=== PATIENT | female | born 1940 | race Caucasian/White ===

== ENCOUNTER 2018-05-24 18:59 | Inpatient (IN) | payer BC ==
[2018-05-24 19:17] LABS: ADD MAN DIFF? NO
[2018-05-24] MEDS: SOD CHLORIDE 0.9% 1,000 ML IV (19:18)
[2018-05-24] MEDS: morphine 4 MG/ML VIAL IV (19:19)
[2018-05-24] MEDS: ONDANSETRON 4 MG INJ IV (19:19)
[2018-05-24 19:20] LABS: BASOPHIL # 0.1 10^3/ul (0.0-0.1); BASOPHILS % 0.6 % (0.0-2.0); EOSINOPHILS # 0.2 10^3/ul (0.0-0.5); EOSINOPHILS % 1.7 % (0.0-7.0); HEMATOCRIT 32.3 % (37.0-47.0); HEMOGLOBIN 11.3 g/dl (12.0-16.0); IMMATURE GRANS #M 0.03 10^3/ul; IMMATURE GRANS % (M) 0.3 %; LYMPHOCYTES # 1.7 10^3/ul (0.8-2.9); LYMPHOCYTES % 19.8 % (15.0-51.0); MEAN CORPUSCULAR HEMOGLOBIN 31.7 pg (29.0-33.0); MEAN CORPUSCULAR VOLUME 90.5 fl (82.0-101.0); MEAN PLATELET VOLUME 10.6 fl (7.4-10.4); MONOCYTE # 0.5 10^3/ul (0.3-0.9); MONOCYTES % 5.3 % (0.0-11.0); NEUTROPHIL # 6.3 10^3/ul (1.6-7.5); NEUTROPHILS % 72.3 % (39.0-77.0); PLATELET COUNT 205 10^3/UL (140-415); RED BLOOD COUNT 3.57 10^6/ul (4.20-5.40); RED CELL DISTRIBUTION WIDTH 15.4 % (11.5-14.5)
[2018-05-24 19:20] LABS: WHITE BLOOD COUNT 8.7 10^3/ul (4.8-10.8)
[2018-05-24 19:37] LABS: ALANINE AMINOTRANSFERASE 27 IU/L (13-69); ALBUMIN 4.9 g/dl (3.3-4.9); ALBUMIN/GLOBULIN RATIO 1.48; ALKALINE PHOSPHATASE 106 IU/L (42-121); ANION GAP 15 (8-16); ASPARTATE AMINO TRANSFERASE 31 IU/L (15-46); BILIRUBIN,INDIRECT 0.7 mg/dl (0-1.1); BILIRUBIN,TOTAL 0.7 mg/dl (0.2-1.3); BLOOD UREA NITROGEN 19 mg/dl (7-20); CALCIUM 9.4 mg/dl (8.4-10.2); CARBON DIOXIDE 23 mmol/L (21-31); CHLORIDE 110 mmol/L (97-110); CREATININE 1.18 mg/dl (0.44-1.00); GLUCOSE 87 mg/dl (70-220); LIPASE 87 U/L (23-300); POTASSIUM 4.1 mmol/L (3.5-5.1); SODIUM 144 mmol/L (135-144); TOTAL PROTEIN 8.2 g/dl (6.1-8.1)
[2018-05-24] MEDS: AMPICILLIN/SULB 3 GM/NS (PMX) 100 ML IVPB (20:33)
[2018-05-24] MEDS ORDERED: ACETAMINOPHEN 325 MG TAB PO ×2 (21:30→22:30)
[2018-05-24] MEDS ORDERED: ONDANSETRON 4 MG INJ IV ×2 (21:30→22:30)
[2018-05-24 22:15] LABS: ADD UMIC YES; UR ASCORBIC ACID NEGATIVE (NEGATIVE); UR BACTERIA FEW /HPF (NONE SEEN); UR BILIRUBIN (Dip) NEGATIVE (NEGATIVE); UR BLOOD (Dip) NEGATIVE (NEGATIVE); UR CLARITY SLIGHTLY CLOUDY (CLEAR); UR COLOR YELLOW (YELLOW); UR GLUCOSE (Dip) NEGATIVE (NEGATIVE); UR KETONES (Dip) NEGATIVE (NEGATIVE); UR LEUKOCYTE ESTERASE (Dip) TRACE Leu/ul (NEGATIVE); UR MUCUS FEW /HPF (NONE SEEN); UR NITRITE (Dip) POSITIVE (NEGATIVE); UR RBC 0 /HPF (0-5); UR SPECIFIC GRAVITY (Dip) 1.011 (1.003-1.030); UR SQUAMOUS EPITHELIAL CELL FEW /HPF (FEW); UR TOTAL PROTEIN (Dip) NEGATIVE (NEGATIVE); UR UROBILINOGEN (Dip) NEGATIVE (NEGATIVE); UR WBC 5 /HPF (0-5)
[2018-05-24] MEDS ORDERED: DOCUSATE SODIUM 100 MG CAP PO (22:30)
[2018-05-24] MEDS ORDERED: morphine 2 MG INJ IV ×2 (22:30)
[2018-05-24] MEDS ORDERED: NACL 0.9% 3 ML SYG IV (22:30)
[2018-05-24] MEDS ORDERED: BISACODYL (EC) 5 MG TAB PO (22:30)
[2018-05-25] MEDS ORDERED: GLUCOSE GEL 15 GRAM TUBE BUCCAL (00:30)
[2018-05-25] MEDS ORDERED: GLUCAGON 1 MG INJ IM (00:30)
[2018-05-25] MEDS ORDERED: DEXTROSE 50% 50 ML SYRINGE IV ×2 (00:30)
[2018-05-25] MEDS ORDERED: GLUCOSE GEL 15 GRAM TUBE PO ×2 (00:30)
[2018-05-25] MEDS: INSULIN ASPART [NOVOLOG] 3 ML PEN SC ×6 (01:00→20:34)
[2018-05-25] MEDS: SOD CHLORIDE 0.9% 1,000 ML IV (01:05)
[2018-05-25] MEDS ORDERED: ACCU-CHEK XX (02:00)
[2018-05-25] MEDS ORDERED: PIPER-TAZO 2.25 GM (PMX) 50 ML IVPB (02:30)
[2018-05-25] MEDS: PIPER-TAZO 2.25 GM (PMX) 50 ML IVPB ×4 (03:15→17:46)
[2018-05-25 05:09] LABS: ADD MAN DIFF? NO
[2018-05-25 05:17] LABS: WHITE BLOOD COUNT 11.4 10^3/ul (4.8-10.8)
[2018-05-25 05:17] LABS: BASOPHIL # 0.1 10^3/ul (0.0-0.1); BASOPHILS % 0.6 % (0.0-2.0); EOSINOPHILS % 0.4 % (0.0-7.0); HEMATOCRIT 32.5 % (37.0-47.0); HEMOGLOBIN 10.9 g/dl (12.0-16.0); IMMATURE GRANS #M 0.04 10^3/ul; IMMATURE GRANS % (M) 0.4 %; LYMPHOCYTES # 1.2 10^3/ul (0.8-2.9); LYMPHOCYTES % 10.6 % (15.0-51.0); MEAN CORPUSCULAR HEMOGLOBIN 30.1 pg (29.0-33.0); MEAN CORPUSCULAR HGB CONC 33.5 g/dl (32.0-37.0); MEAN CORPUSCULAR VOLUME 89.8 fl (82.0-101.0); MEAN PLATELET VOLUME 10.4 fl (7.4-10.4); MONOCYTE # 0.5 10^3/ul (0.3-0.9); MONOCYTES % 4.7 % (0.0-11.0); NEUTROPHIL # 9.5 10^3/ul (1.6-7.5); NEUTROPHILS % 83.3 % (39.0-77.0); PLATELET COUNT 186 10^3/UL (140-415); RED BLOOD COUNT 3.62 10^6/ul (4.20-5.40); RED CELL DISTRIBUTION WIDTH 15.5 % (11.5-14.5)
[2018-05-25 05:28] LABS: ALANINE AMINOTRANSFERASE 23 IU/L (13-69); ALBUMIN/GLOBULIN RATIO 1.42; ALKALINE PHOSPHATASE 89 IU/L (42-121); ANION GAP 12 (8-16); ASPARTATE AMINO TRANSFERASE 26 IU/L (15-46); BILIRUBIN,INDIRECT 1.3 mg/dl (0-1.1); BILIRUBIN,TOTAL 1.3 mg/dl (0.2-1.3); BLOOD UREA NITROGEN 15 mg/dl (7-20); CALCIUM 8.6 mg/dl (8.4-10.2); CARBON DIOXIDE 24 mmol/L (21-31); CHLORIDE 111 mmol/L (97-110); GLUCOSE 109 mg/dl (70-220); MAGNESIUM 1.5 mg/dl (1.7-2.5); POTASSIUM 4.4 mmol/L (3.5-5.1); SODIUM 143 mmol/L (135-144); TOTAL PROTEIN 6.8 g/dl (6.1-8.1)
[2018-05-25 05:31] LABS: HEMOGLOBIN A1C 6.5 % (0-5.9)
[2018-05-25] MEDS: LEVOTHYROXINE 88 MCG TAB PO (06:00)
[2018-05-25] MEDS ORDERED: EPHEDrine SULFATE 50 MG/5 ML SYG (07:00)
[2018-05-25] MEDS ORDERED: SUCCINYLCHOLINE CHLORIDE 100 MG/5 ML SYG IV (07:14)
[2018-05-25] MEDS ORDERED: PROPOFOL 20 ML (07:14)
[2018-05-25] MEDS ORDERED: GLYCOPYRROLATE 0.4 MG INJ ×2 (07:14→07:52)
[2018-05-25] MEDS ORDERED: NEOSTIGMINE 3 MG/3 ML SYRINGE (07:14)
[2018-05-25] MEDS ORDERED: ROCURONIUM 50 MG INJ (07:14)
[2018-05-25] MEDS ORDERED: LIDOCAINE 2% (SDV) 5 ML INJ (07:14)
[2018-05-25] MEDS ORDERED: FENTAnyl 50 MCG/ML VIAL (07:21)
[2018-05-25] MEDS ORDERED: HYDROCODONE/APAP (5/325) TAB PO (07:30)
[2018-05-25] MEDS ORDERED: ACETAMINOPHEN 325 MG TAB PO (07:30)
[2018-05-25] MEDS ORDERED: ONDANSETRON 4 MG INJ IV ×2 (07:30→08:30)
[2018-05-25] MEDS ORDERED: morphine 4 MG/ML VIAL IV (07:30)
[2018-05-25] MEDS ORDERED: IBUPROFEN 600 MG TAB PO (07:30)
[2018-05-25] MEDS: BUPIVACAINE 0.25% (MPF) 30 ML INJ (07:44)
[2018-05-25] MEDS: LIDOCAINE 1%/EPI 30 ML INJ (07:44)
[2018-05-25] MEDS ORDERED: METOCLOPRAMIDE 10 MG INJ (07:48)
[2018-05-25] MEDS ORDERED: ONDANSETRON 4 MG INJ (07:48)
[2018-05-25] MEDS ORDERED: SUGAMMADEX SODIUM 200 MG/2 ML VIAL IV (08:08)
[2018-05-25] MEDS ORDERED: FENTAnyl 50 MCG/ML VIAL IV ×3 (08:30)
[2018-05-25] MEDS ORDERED: METOCLOPRAMIDE 10 MG INJ IV (08:30)
[2018-05-25] MEDS ORDERED: HYDROmorphONE 1 MG/5 ML IV SYRINGE IV ×2 (08:30)
[2018-05-25] MEDS ORDERED: hydrALAzine 20 MG INJ IV (08:30)
[2018-05-25] MEDS ORDERED: OXYCODONE/ACETAMINOPHEN (5/325) TAB PO ×2 (08:30)
[2018-05-25] MEDS ORDERED: LABETALOL HCL 20MG INJ IV (08:30)
[2018-05-25] MEDS ORDERED: MIDAZOLAM 1 MG/ML 2 ML INJ IV (08:30)
[2018-05-25] MEDS ORDERED: EPHEDrine SULFATE 50 MG/5 ML SYG IV (08:30)
[2018-05-25] MEDS ORDERED: DIPHENHYDRAMINE 50 MG INJ IV (08:30)
[2018-05-25] MEDS ORDERED: MEPERIDINE 25 MG INJ IV (08:30)
[2018-05-25] MEDS: HYDROmorphONE 1 MG/5 ML IV SYRINGE IV (08:40)
[2018-05-25] MEDS ORDERED: NON-FORMULARY/PATIENT OWN MED (Simvastatin 20 MG) PO (09:00)
[2018-05-25] MEDS: D5-NS + KCL 20 MEQ 1,000 ML IV (10:14)
[2018-05-25] MEDS: ASPIRIN 81 MG TAB PO (11:30)
[2018-05-25] MEDS: LORATADINE 10 MG TAB PO (11:35)
[2018-05-25] MEDS: METOPROLOL 25 MG TAB PO ×2 (11:36→20:34)
[2018-05-25] MEDS: AMLODIPINE 5 MG TAB PO ×2 (11:37→20:30)
[2018-05-25] MEDS ORDERED: PIPER-TAZO 3.375 GM IV (PMX) 100 ML IVPB (12:00)
[2018-05-25] MEDS: LEVOTHYROXINE 100 MCG TAB PO (14:01)
[2018-05-25] MEDS: ATORVASTATIN 10 MG TAB PO (20:30)
[2018-05-26] MEDS: PIPER-TAZO 2.25 GM (PMX) 50 ML IVPB ×4 (00:32→18:02)
[2018-05-26] MEDS: INSULIN ASPART [NOVOLOG] 3 ML PEN SC ×5 (00:38→17:00)
[2018-05-26] MEDS ORDERED: PIPER-TAZO 3.375 GM IV (PMX) 100 ML IVPB (02:00)
[2018-05-26] MEDS: LEVOTHYROXINE 100 MCG TAB PO (05:28)
[2018-05-26 05:51] LABS: ADD MAN DIFF? NO
[2018-05-26 05:59] LABS: BASOPHIL # 0.1 10^3/ul (0.0-0.1); BASOPHILS % 0.7 % (0.0-2.0); EOSINOPHILS # 0.1 10^3/ul (0.0-0.5); EOSINOPHILS % 1.3 % (0.0-7.0); HEMATOCRIT 31.9 % (37.0-47.0); HEMOGLOBIN 10.8 g/dl (12.0-16.0); IMMATURE GRANS #M 0.03 10^3/ul; IMMATURE GRANS % (M) 0.4 %; LYMPHOCYTES # 1.8 10^3/ul (0.8-2.9); LYMPHOCYTES % 25.4 % (15.0-51.0); MEAN CORPUSCULAR HEMOGLOBIN 30.5 pg (29.0-33.0); MEAN CORPUSCULAR HGB CONC 33.9 g/dl (32.0-37.0); MEAN CORPUSCULAR VOLUME 90.1 fl (82.0-101.0); MEAN PLATELET VOLUME 11.1 fl (7.4-10.4); MONOCYTE # 0.4 10^3/ul (0.3-0.9); MONOCYTES % 5.8 % (0.0-11.0); NEUTROPHIL # 4.7 10^3/ul (1.6-7.5); NEUTROPHILS % 66.4 % (39.0-77.0); PLATELET COUNT 195 10^3/UL (140-415); RED BLOOD COUNT 3.54 10^6/ul (4.20-5.40); RED CELL DISTRIBUTION WIDTH 15.2 % (11.5-14.5)
[2018-05-26 05:59] LABS: WHITE BLOOD COUNT 7.1 10^3/ul (4.8-10.8)
[2018-05-26 06:16] LABS: ANION GAP 12 (8-16); BLOOD UREA NITROGEN 12 mg/dl (7-20); CALCIUM 8.4 mg/dl (8.4-10.2); CARBON DIOXIDE 24 mmol/L (21-31); CHLORIDE 109 mmol/L (97-110); CREATININE 0.95 mg/dl (0.44-1.00); GLUCOSE 81 mg/dl (70-220); POTASSIUM 3.9 mmol/L (3.5-5.1); SODIUM 141 mmol/L (135-144)
[2018-05-26] MEDS: ENOXAPARIN 40 MG/0.4 ML SYG SC (06:23)
[2018-05-26 07:14] LABS: IRON 56 ug/dl (35-150)
[2018-05-26 07:23] LABS: % IRON SATURATION 18 % SAT (22-52); TOTAL IRON BINDING CAPACITY 313 ug/dl (241-421)
[2018-05-26] MEDS: ASPIRIN 81 MG TAB PO (08:55)
[2018-05-26] MEDS: LORATADINE 10 MG TAB PO (08:56)
[2018-05-26] MEDS: AMLODIPINE 5 MG TAB PO (08:56)
[2018-05-26] MEDS: METOPROLOL 25 MG TAB PO (08:57)
== END 2018-05-26 18:58 | disposition home or self-care (01) | DRG 342 ==
LOC: E/R 18:59 → MS1 21:24
PROC: 0DTJ4ZZ Resection of Appendix, Percutaneous Endoscopic Approach (ICD-10-PCS; principal; 2018-05-25 07:00)
DX: K35.80 Unspecified acute appendicitis (principal); N17.9 Acute kidney failure, unspecified; E11.9 Type 2 diabetes mellitus without complications; E03.9 Hypothyroidism, unspecified; D64.9 Anemia, unspecified; I12.9 Hypertensive chronic kidney disease with stage 1 through stage 4 chronic kidney disease, or unspecified chronic kidney disease; N18.9 Chronic kidney disease, unspecified; E11.22 Type 2 diabetes mellitus with diabetic chronic kidney disease
CPT/HCPCS: 36415; 71045; 74176; 80048; 80053; 81001; 82962; 83036; 83540; 83690; 83735; 84443; 85025; 88304; 93005; 96374; 96375; 99285-25

== ENCOUNTER 2018-12-06 10:59 | Observation (INO) | payer BC ==
[2018-12-06] MEDS: SOD CHLORIDE 0.9% 500 ML IV (11:38)
[2018-12-06 11:39] LABS: ADD MAN DIFF? NO
[2018-12-06 11:42] LABS: WHITE BLOOD COUNT 6.1 10^3/ul (4.8-10.8)
[2018-12-06 11:42] LABS: BASOPHIL # 0.1 10^3/ul (0.0-0.1); BASOPHILS % 0.8 % (0.0-2.0); EOSINOPHILS # 0.1 10^3/ul (0.0-0.5); EOSINOPHILS % 2.3 % (0.0-7.0); HEMATOCRIT 33.1 % (37.0-47.0); HEMOGLOBIN 10.9 g/dl (12.0-16.0); LYMPHOCYTES # 1.5 10^3/ul (0.8-2.9); LYMPHOCYTES % 24.8 % (15.0-51.0); MEAN CORPUSCULAR HEMOGLOBIN 28.9 pg (29.0-33.0); MEAN CORPUSCULAR HGB CONC 32.9 g/dl (32.0-37.0); MEAN CORPUSCULAR VOLUME 87.8 fl (82.0-101.0); MEAN PLATELET VOLUME 10.6 fl (7.4-10.4); MONOCYTE # 0.4 10^3/ul (0.3-0.9); MONOCYTES % 6.1 % (0.0-11.0); NEUTROPHILS % 65.8 % (39.0-77.0); PLATELET COUNT 214 10^3/UL (140-415); RED BLOOD COUNT 3.77 10^6/ul (4.20-5.40); RED CELL DISTRIBUTION WIDTH 13.5 % (11.5-14.5)
[2018-12-06 11:49] LABS: ANION GAP 11 (5-13); BLOOD UREA NITROGEN 22 mg/dl (7-20); CALCIUM 9.5 mg/dl (8.4-10.2); CARBON DIOXIDE 24 mmol/L (21-31); CHLORIDE 105 mmol/L (97-110); CREATININE 1.05 mg/dl (0.44-1.00); GLUCOSE 234 mg/dl (70-220); POTASSIUM 4.4 mmol/L (3.5-5.1); SODIUM 140 mmol/L (135-144)
[2018-12-06 12:01] LABS: TROPONIN-I < 0.012 ng/ml (0.000-0.120)
[2018-12-06] MEDS ORDERED: GLUCOSE GEL 15 GRAM TUBE BUCCAL (14:30)
[2018-12-06] MEDS ORDERED: ACETAMINOPHEN 325 MG TAB PO (14:30)
[2018-12-06] MEDS ORDERED: GLUCOSE GEL 15 GRAM TUBE PO ×2 (14:30)
[2018-12-06] MEDS ORDERED: DEXTROSE 50% 50 ML SYRINGE IV ×2 (14:30)
[2018-12-06] MEDS ORDERED: NACL 0.9% 3 ML SYG IV (14:30)
[2018-12-06] MEDS ORDERED: ONDANSETRON 4 MG INJ IV (14:30)
[2018-12-06] MEDS ORDERED: GLUCAGON 1 MG INJ IM (14:30)
[2018-12-06 14:33] LABS: ETHANOL < 10.0 mg/dl (0-0)
[2018-12-06 14:45] LABS: B-TYPE NATRIURETIC PEPTIDE 164 PG/ML (0-450)
[2018-12-06 16:57] LABS: CREATINE KINASE 52 IU/L (23-200)
[2018-12-06 17:10] LABS: CK INDEX 1.8; CK-MB 0.92 ng/ml (0.0-2.4); TROPONIN-I < 0.012 ng/ml (0.000-0.120)
[2018-12-06 17:38] LABS: FREE T4 (FREE THYROXINE) 2.38 ng/dl (0.78-2.44)
[2018-12-06 17:52] LABS: THYROID STIMULATING HORMONE 0.046 MIU/L (0.465-4.680)
[2018-12-06] MEDS: INSULIN ASPART [NOVOLOG] 3 ML PEN SC ×3 (18:21→20:44)
[2018-12-06] MEDS: ATORVASTATIN 10 MG TAB PO (20:43)
[2018-12-06] MEDS: INSULIN GLARGINE [LANTus] (100 UNITS/ML) SYG SC ×2 (20:45→21:41)
[2018-12-06 22:27] LABS: CREATINE KINASE 50 IU/L (23-200)
[2018-12-06 22:35] LABS: AMPHETAMINE/METHAMPHETAMINE Negative (NEGATIVE); BARBITURATES Negative (NEGATIVE); BENZODIAZEPINES Negative (NEGATIVE); CANNABINOIDS Negative (NEGATIVE); COCAINE Negative (NEGATIVE); OPIATES Negative (NEGATIVE)
[2018-12-06 22:39] LABS: CK INDEX 1.2; CK-MB 0.61 ng/ml (0.0-2.4); TROPONIN-I < 0.012 ng/ml (0.000-0.120)
[2018-12-07 04:14] LABS: ADD MAN DIFF? NO
[2018-12-07 04:16] LABS: BASOPHILS % 0.8 % (0.0-2.0); EOSINOPHILS # 0.1 10^3/ul (0.0-0.5); EOSINOPHILS % 2.7 % (0.0-7.0); HEMOGLOBIN 9.9 g/dl (12.0-16.0); LYMPHOCYTES # 1.6 10^3/ul (0.8-2.9); LYMPHOCYTES % 33.1 % (15.0-51.0); MEAN CORPUSCULAR HEMOGLOBIN 29.2 pg (29.0-33.0); MEAN CORPUSCULAR VOLUME 88.5 fl (82.0-101.0); MONOCYTE # 0.4 10^3/ul (0.3-0.9); MONOCYTES % 7.5 % (0.0-11.0); NEUTROPHIL # 2.7 10^3/ul (1.6-7.5); NEUTROPHILS % 55.9 % (39.0-77.0); PLATELET COUNT 187 10^3/UL (140-415); RED BLOOD COUNT 3.39 10^6/ul (4.20-5.40); RED CELL DISTRIBUTION WIDTH 13.5 % (11.5-14.5)
[2018-12-07 04:16] LABS: WHITE BLOOD COUNT 4.8 10^3/ul (4.8-10.8)
[2018-12-07 04:36] LABS: ANION GAP 8 (5-13); BLOOD UREA NITROGEN 19 mg/dl (7-20); CALCIUM 9.3 mg/dl (8.4-10.2); CARBON DIOXIDE 27 mmol/L (21-31); CHLORIDE 108 mmol/L (97-110); CREATININE 0.82 mg/dl (0.44-1.00); GLUCOSE 89 mg/dl (70-220); POTASSIUM 4.5 mmol/L (3.5-5.1); SODIUM 143 mmol/L (135-144)
[2018-12-07 04:37] LABS: INR 1.02; PARTIAL THROMBOPLASTIN TIME 30.8 Sec (23.0-35.0); PROTIME 13.5 Sec (11.9-14.9); PT RATIO 1.1
[2018-12-07 04:45] LABS: CREATINE KINASE 41 IU/L (23-200)
[2018-12-07 04:55] LABS: CHOL/HDL RATIO 4.4 RATIO; CHOLESTEROL 106 mg/dl (100-200); HDL CHOLESTEROL 24 mg/dl (33-92); LDL CHOLESTEROL,CALCULATED 48 mg/dl; MAGNESIUM 1.7 mg/dl (1.7-2.5); TRIGLYCERIDES 169 mg/dl (0-149)
[2018-12-07 04:57] LABS: CK INDEX 1.5; TROPONIN-I < 0.012 ng/ml (0.000-0.120)
[2018-12-07] MEDS: INSULIN ASPART [NOVOLOG] 3 ML PEN SC ×7 (08:00→20:06)
[2018-12-07] MEDS: CHOLECALCIFEROL 2,000 UNIT CAP PO (08:26)
[2018-12-07] MEDS: FLUTICASONE 0.05% 16 GM NAS SPRAY NASAL (08:26)
[2018-12-07] MEDS: ASPIRIN (EC) 81 MG TAB PO (12:18)
[2018-12-07] MEDS: ATORVASTATIN 10 MG TAB PO (20:06)
[2018-12-07] MEDS: INSULIN GLARGINE [LANTus] (100 UNITS/ML) SYG SC (20:18)
[2018-12-08 05:38] LABS: ADD MAN DIFF? NO
[2018-12-08 05:56] LABS: WHITE BLOOD COUNT 6.3 10^3/ul (4.8-10.8)
[2018-12-08 05:56] LABS: BASOPHIL # 0.1 10^3/ul (0.0-0.1); EOSINOPHILS # 0.2 10^3/ul (0.0-0.5); EOSINOPHILS % 2.7 % (0.0-7.0); HEMATOCRIT 32.3 % (37.0-47.0); HEMOGLOBIN 10.7 g/dl (12.0-16.0); LYMPHOCYTES # 1.3 10^3/ul (0.8-2.9); LYMPHOCYTES % 20.6 % (15.0-51.0); MEAN CORPUSCULAR HEMOGLOBIN 29.2 pg (29.0-33.0); MEAN CORPUSCULAR HGB CONC 33.1 g/dl (32.0-37.0); MEAN CORPUSCULAR VOLUME 88.3 fl (82.0-101.0); MEAN PLATELET VOLUME 10.5 fl (7.4-10.4); MONOCYTE # 0.4 10^3/ul (0.3-0.9); NEUTROPHIL # 4.3 10^3/ul (1.6-7.5); NEUTROPHILS % 68.5 % (39.0-77.0); PLATELET COUNT 210 10^3/UL (140-415); RED BLOOD COUNT 3.66 10^6/ul (4.20-5.40); RED CELL DISTRIBUTION WIDTH 13.4 % (11.5-14.5)
[2018-12-08 06:13] LABS: MAGNESIUM 1.5 mg/dl (1.7-2.5)
[2018-12-08 06:13] LABS: PHOSPHORUS 4.6 mg/dl (2.5-4.9)
[2018-12-08 07:36] LABS: ANION GAP 10 (5-13); BLOOD UREA NITROGEN 19 mg/dl (7-20); CALCIUM 9.4 mg/dl (8.4-10.2); CARBON DIOXIDE 26 mmol/L (21-31); CHLORIDE 107 mmol/L (97-110); CREATININE 0.82 mg/dl (0.44-1.00); GLUCOSE 92 mg/dl (70-220); POTASSIUM 4.2 mmol/L (3.5-5.1); SODIUM 143 mmol/L (135-144)
[2018-12-08] MEDS: INSULIN ASPART [NOVOLOG] 3 ML PEN SC ×6 (08:00→17:38)
[2018-12-08] MEDS: FLUTICASONE 0.05% 16 GM NAS SPRAY NASAL (08:28)
[2018-12-08] MEDS: CHOLECALCIFEROL 2,000 UNIT CAP PO (08:28)
[2018-12-08] MEDS: ASPIRIN (EC) 81 MG TAB PO (08:28)
[2018-12-08] MEDS: ENOXAPARIN 30 MG/0.3 ML SYG SC (08:35)
[2018-12-08 10:52] LABS: ADD UMIC YES; UR ASCORBIC ACID NEGATIVE (NEGATIVE); UR BACTERIA FEW /HPF (NONE SEEN); UR BILIRUBIN (Dip) NEGATIVE (NEGATIVE); UR BLOOD (Dip) NEGATIVE (NEGATIVE); UR CLARITY SLIGHTLY CLOUDY (CLEAR); UR COLOR YELLOW (YELLOW); UR GLUCOSE (Dip) NEGATIVE (NEGATIVE); UR KETONES (Dip) NEGATIVE (NEGATIVE); UR LEUKOCYTE ESTERASE (Dip) TRACE Leu/ul (NEGATIVE); UR MUCUS FEW /HPF (NONE SEEN); UR NITRITE (Dip) NEGATIVE (NEGATIVE); UR RBC 0 /HPF (0-5); UR SPECIFIC GRAVITY (Dip) 1.014 (1.003-1.030); UR SQUAMOUS EPITHELIAL CELL FEW /HPF (FEW); UR TOTAL PROTEIN (Dip) NEGATIVE (NEGATIVE); UR UROBILINOGEN (Dip) NEGATIVE (NEGATIVE); UR WBC 1 /HPF (0-5)
[2018-12-08] MEDS: MAGNESIUM SULFATE 2 GM/50 ML 50 ML IVPB (11:29)
[2018-12-08] MEDS ORDERED: LEVETIRACETAM 500 MG TAB PO (21:00)
== END 2018-12-08 20:27 | disposition home or self-care (01) ==
LOC: E/R 10:59 → 6WM 12:48
DX: R55 Syncope and collapse (principal); I10 Essential (primary) hypertension; E11.9 Type 2 diabetes mellitus without complications; D64.9 Anemia, unspecified; E78.5 Hyperlipidemia, unspecified; E78.1 Pure hyperglyceridemia; E03.9 Hypothyroidism, unspecified; Z79.82 Long term (current) use of aspirin; Z79.4 Long term (current) use of insulin; Z86.73 Personal history of transient ischemic attack (TIA), and cerebral infarction without residual deficits
CPT/HCPCS: 36415; 70450; 70551; 71045; 80048; 80061; 80307; 81001; 82550; 82553; 82962; 83036; 83735; 83880; 84100; 84439; 84443; 84484; 85025; 85610; 85730; 93005; 93306; 93880; 95819; 97161; 99285; G0378